=== PATIENT | male | born 1995 | race Caucasian/White ===

== ENCOUNTER 2023-01-23 00:47 | Outpatient (CLI) | payer OTHER, SELFPAY ==
--- NOTE | 2023-01-23 | DI.MRI_ITS ---
Exam(s) MR LUMBAR SPINE WO EXAM: MR LUMBAR SPINE WO CLINICAL HISTORY: SYNOVIAL CYST LUMBAR SPINE, M71.38, BACK PAIN RADICULOPATHY, M54.16. TECHNIQUE: Imaging Protocol: Axial computed tomography images with coronal and sagittal reformatted images were created and reviewed COMPARISON: MR MRI - LUMBAR SPINE WO CONTRAST from 11/26/2016 FINDINGS: Bones: The last intervertebral disc space is designated the L5/S1 level for the numbering purpose of this examination. The vertebral body heights are well maintained. Alignment is satisfactory. No fracture is seen. T12-L1: No disc herniations or bulges are present. L1-2: No disc herniations or bulges are present. L2-3: No disc herniations or bulges are present. L3-4: Minimal the disc bulging and tiny central disc protrusion. L4-5: Mild disc bulging. Previously noted left facet cyst no longer present. L5-S1: Minimal disc bulging. The visualized SI joints and sacrum are will maintained. Soft Tissues: The paraspinal soft tissues are unremarkable. IMPRESSION: Mild degenerative disc changes at L3-4 through L5-S1. No significant central canal stenosis or neura l foraminal narrowing. Previously noted left-sided facet joint cyst is no longer present. RADIATION DOSE DELIVERED: Total DLP DATA REPOSITORY: All CT scans at this facility are submitted to the National Radiology Data Registry (NRDR) Dose Index Registry (DIR) with the [employer] ([employer]). RADIATION OPTIMIZATION: All CT scans at this facility use at least one of these dose optimization te chniques: automated exposure control; mA and/or kV adjustment per patient size (includes targeted exa ms where dose is matched to clinical indication); or iterative reconstruction.
== END 2023-01-23 01:07 ==
LOC: DI 00:48
PROVIDERS: PCP Internal Medicine; Visit Provider Family Medicine
DX: M54.16 Radiculopathy, lumbar region (principal); M71.38 Other bursal cyst, other site; M51.17 Intervertebral disc disorders with radiculopathy, lumbosacral region
CPT/HCPCS: 72148

== ENCOUNTER 2024-02-19 18:24 | Emergency (ER) | payer OTHER, SELFPAY ==
[2024-02-19] VITALS (21 sets, daily range): BP systolic 109–132; BP diastolic 62–88; PULSE 81–109; RESP 20–33; TEMP 37–39.4; O2SAT 92–97
--- NOTE | 2024-02-19 18:30 | DI.RAD_ITS ---
Exam(s) XR PORTABLE CHEST AP EXAM: XR PORTABLE CHEST AP CLINICAL HISTORY: cough, crackles LLL. TECHNIQUE: 2D digital imaging was performed. COMPARISON: No exams were available for comparison FINDINGS: Single AP portable view. Heart size is upper normal. The mediastinum is not widened. Right lung is clear but there is some infiltrate in the left suprahilar region. No pleural effusions . IMPRESSION: Left para-suprahilar infiltrate. No obvious pleural effusions DATA REPOSITORY: RADIATION DOSE DELIVERED:
[2024-02-19 19:11] LABS: Absolute Basophil Count 0.04 10^3/uL (0.0-0.2); Absolute Lymphocyte Count 1.15 10^3/uL (1.2-3.4); Absolute Monocyte Count 0.29 10^3/uL (0.1-0.8); Basophils % 0.6; HCT 44.5 % (40.0-50.0); HGB 15.4 g/dL (13.5-17.5); Immature Grans % 1.6; Lymphocytes % 18.3; MCH 28.9 pg (27.0-33.0); MCHC 34.6 % (32.0-36.0); MCV 84 fL (80-95); MPV 10.2 fL (8.0-11.0); Monocytes % 4.6; Neutrophils % 74.9; Platelet Count 248 10^3/uL (130-400); RBC 5.32 10^6/uL (4.36-5.78); RDW 13.2 % (11.8-14.1); RDW-SD 40.3 fL; WBC 6.28 10^3/uL (4.4-10.8)
[2024-02-19] MEDS: cefTRIAXone 2 GM/50 ML BAG IVPB (19:27)
[2024-02-19] MEDS: Lactated Ringers 1,000 ML 1000 ML IV ×2 (19:29→20:23)
[2024-02-19] MEDS: AZITHROMYCIN 500 MG in Normal Saline 250 ML 250 MG IVPB (19:30)
[2024-02-19] MEDS: Ketorolac 15 MG/ML VIAL IVP (19:30)
[2024-02-19 19:37] LABS: ALT 43 U/L (16-63); AST 42 U/L (15-37); Albumin 3.4 g/dL (3.4-5.0); Alkaline Phosphatase 65 U/L (46-116); Anion Gap 11.8 mmol/L (3-11); BUN 13 mg/dL (7-18); Bilirubin, Total 0.7 mg/dL (0.2-1.0); CO2 25.2 mmol/L (21.0-32.0); CREATININE 1.1 mg/dL (0.70-1.30); Calcium 8.8 mg/dL (8.5-10.1); Chloride 98 mmol/L (98-107); Estimated GFR 93.77 (mL/min/1.73m2); Glucose 103 mg/dL (74-106); Lipase 200 U/L (16-77); Magnesium 2.2 mg/dL (1.8-2.4); Potassium 4.5 mmol/L (3.5-5.1); Sodium 135 mmol/L (136-145); TSH (W/Ref FT4) 1.55 uIU/mL (0.36-3.74); Total Protein 8.4 g/dL (6.4-8.2)
[2024-02-19 19:46] LABS: COVID-19 PCR Negative (Negative); Influenza A PCR Positive (Negative); Influenza B PCR Negative (Negative); RSV PCR Negative (Negative)
[2024-02-19 19:47] LABS: Source Nasopharynx
--- NOTE | 2024-02-19 19:52 | DI.VRAD_ITS ---
PROCEDURE INFORMATION: Exam: XR Chest Exam date and time: 02/19/2024 7:07 PM Age: 28 years old Clinical indication: Cough and other: Crackles lll; Additional info: Cough, crackles lll TECHNIQUE: Imaging protocol: Radiologic exam of the chest. Views: 1 view. COMPARISON: No relevant prior studies available. FINDINGS: Lungs: Moderate left perihilar infiltrate. Lung volumes are relatively low. Lungs are otherwise clear. Pleural spaces: Unremarkable. No pleural effusion. No pneumothorax. Heart/Mediastinum: Unremarkable. No cardiomegaly. Bones/joints: Unremarkable. IMPRESSION: Left perihilar infiltrate Dictated and Authenticated by: Hai Wheatley MD. Ordering:PANKAJ Vallejo MD
[2024-02-19 20:37] LABS: Procalcitonin < 0.1 ng/mL
--- NOTE | 2024-02-19 21:09 | W.ED.GENAD ---
Discharge Plan Disposition Patient Disposition: Home Condition: Good Discharge Details Clinical Impression: Pneumonia, Influenza, Acute pancreatitis, Dehydration Primary Care Provider: Piedad Presley ED Provider: Yoni Erwin Home Meds and New Rx's Prescriptions: New amoxicillin-pot clavulanate 875-125 mg tablet 1 tab PO BID 7 Days Qty: 14 0RF azithromycin 250 mg tablet 250 mg PO DAILY 4 Days Qty: 4 0RF Rx Instructions: start on day 2 of therapy Discharge Instructions Instructions: Influenza (ED), Pneumonia (ED), Pancreatitis (ED) Additional Instructions: At this time you have evidence of bacterial pneumonia. You also have influenza. Please take the antibiotics as directed. Please also take a probiotic to prevent any diarrhea. Please drink plenty of fluids and stay well-hydrated. Stick with a liquid diet for the next few days secondary to your pancreatitis. Please take a probiotic daily to help with the diarrhea. Monitor your symptoms closely. If you notice any worsening of your symptoms, or any new symptoms such as vomiting, diarrhea, fever, chills, shortness of breath, chest pain, numbness, weakness, or fainting , please return immediately to the emergency department for reevaluation. Please follow up with your primary care provider as soon as possible for reassessment and reevaluation. As always, it was a pleasure participating in your medical care today. Referrals: Piedad Presley [Primary Care Provider] - [facility] General Date/Time Provider Initiated Documentation: 02/19/24 18:29. HPI Narrative: 28-year-old male with no significant past medical history presents today for evaluation of cough, nausea, and feeling rundown. Patient states that for 2 to 3 weeks he has had runny nose congestion cough which is gradually been worsening particularly over the last week. He was the first to get sick, the rest of his family eventually came down with similar symptoms and they tested themselves and were positive for influenza. Unfortunately the patient has not improved. His appetite has been notably diminished, he has felt nauseous with no significant vomiting though. He had 1 episode of vomiting a few days back though. Cough is productive with yellow sputum. No lucio hemoptysis. He does admit to mild diarrhea. He denies any foreign travel, international travel, or recent antibiotic use. Related Data Home Medications Medication Instructions Recorded Confirmed amoxicillin 875 mg-potassium 1 tab PO BID 7 days #14 tabs 02/19/24 clavulanate 125 mg tablet azithromycin 250 mg tablet 250 mg PO DAILY 4 days #4 tabs 02/19/24 Previous Rx's Medication Instructions Recorded amoxicillin 875 mg-potassium 1 tab PO BID 7 days #14 tabs 02/19/24 clavulanate 125 mg tablet azithromycin 250 mg tablet 250 mg PO DAILY 4 days #4 tabs 02/19/24 Allergies Allergy/AdvReac Type Severity Reaction Status Date / Time doxycycline Allergy unknown Verified 01/25/24 15:28 sulfamethoxazole Allergy rash Verified 01/25/24 15:28 [From Bactrim] trimethoprim [From Bactrim] Allergy rash Verified 01/25/24 15:28 Sulfa (Sulfonamide AdvReac Unknown unknown Unverified 01/25/24 15:28 Antibiotics) General Stated Complaint: RespSymp MONICA: 3 Review of Systems All systems reviewed & are unremarkable except as noted in HPI and below Exam Narrative Exam Narrative: 1.Const: Well-nourished, Well-developed, appearing stated age 2.Eyes: PERRL, no conjunctival injection, and symmetrical lids. 3.ENT: Atraumatic external nose and ears. Dry MM. Neck: Symmetric, trachea midline, No thyromegaly. 4.CVS: +S1/S2, No murmurs or gallops. Peripheral pulses 2+ and equal in all extremities. Brisk capillary refill in all extremities. 5.RESP: Unlabored respiratory effort. Crackles in the left lower lung field. No wheezes, no rhonchi. 6.GI: Soft, Nontender/Nondistended, No hepatosplenomegaly. No guarding or rebound. 7.MSK: Normocephalic/Atraumatic, Extremities w/o deformity or ttp No cyanosis or clubbing, Normal movement of all extremities 8.Skin: Warm, Dry. No rashes or lesions. 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 Sensation grossly intact, no focal neurologic deficits. 10.Psych: (AAO) x3. Appropriate mood and affect Course Vital Signs Vital signs: Vital Signs Temperature 37.0 C 02/19/24 18:31 Pulse 109 H 02/19/24 18:31 Respiratory Rate 20 02/19/24 18:31 Blood Pressure 132/88 02/19/24 18:31 Pulse Oximetry 94 02/19/24 18:31 Temperature 37.1 C 02/19/24 20:55 Temperature Source Temporal Artery Scan 02/19/24 19:39 Pulse 87 02/19/24 20:45 Pulse 87 02/19/24 20:50 Respiratory Rate 22 02/19/24 20:50 Respiratory Effort Short of Breath, Labored 02/19/24 19:47 Respiratory Depth Shallow 02/19/24 19:47 Blood Pressure 115/76 02/19/24 20:45 Blood Pressure Mean 89 02/19/24 20:45 Blood Pressure Position Supine 02/19/24 19:39 Pulse Oximetry 94 02/19/24 20:50 Oxygen Delivery Method Room Air 02/19/24 19:39 Oxygen Flow Rate 0 02/19/24 18:31 Pain Level 0 02/19/24 19:39 Lab/Test Results Lab/Test Results: 02/19/24 15:24 Blood Blood Culture - Pending 02/19/24 15:20 Blood Blood Culture - Pending Laboratory Tests Range/Units 02/19/24 19:00 WBC (4.4-10.8) 10^3/uL 6.28 RBC (4.36-5.78) 10^6/uL 5.32 Hgb (13.5-17.5) g/dL 15.4 Hct (40.0-50.0) % 44.5 MCV (80-95) fL 84 MCH (27.0-33.0) pg 28.9 MCHC (32.0-36.0) % 34.6 RDW (11.8-14.1) % 13.2 Plt Count (130-400) 10^3/uL 248 MPV (8.0-11.0) fL 10.2 Immature Gran % 1.6 Neutrophils % 74.9 Lymphocytes % 18.3 Monocytes % 4.6 Eosinophils % 0.0 Basophils % 0.6 Nucleated RBC % (0.0-0.3) % 0.0 Absolute Neutrophils (1.2-6.7) 10^3/uL 4.70 Absolute Lymphocytes (1.2-3.4) 10^3/uL 1.15 L Absolute Monocytes (0.1-0.8) 10^3/uL 0.29 Absolute Eosinophils (0.0-0.7) 10^3/uL 0.00 Absolute Basophils (0.0-0.2) 10^3/uL 0.04 VBG Lactate (0.6-1.4) mmol/L 1.0 Sodium (136-145) mmol/L 135 L Potassium (3.5-5.1) mmol/L 4.5 Chloride (98-107) mmol/L 98 Carbon Dioxide (21.0-32.0) mmol/L 25.2 Anion Gap (3-11) mmol/L 11.8 H BUN (7-18) mg/dL 13 Creatinine (0.70-1.30) mg/dL 1.1 Est GFR (CKD-EPI 2020) (mL/min/1.73m2) 93.77 Glucose (74-106) mg/dL 103 Calcium (8.5-10.1) mg/dL 8.8 Magnesium (1.8-2.4) mg/dL 2.2 Total Bilirubin (0.2-1.0) mg/dL 0.7 AST (15-37) U/L 42 H ALT (16-63) U/L 43 Alkaline Phosphatase (46-116) U/L 65 Total Protein (6.4-8.2) g/dL 8.4 H Albumin (3.4-5.0) g/dL 3.4 Lipase (16-77) U/L 200 H Procalcitonin ng/mL < 0.1 TSH (0.36-3.74) uIU/mL 1.55 COVID-19 Source Nasopharynx SARS-CoV-2 (PCR) (Negative) Negative Influenza Type A (PCR) (Negative) Positive A Influenza Type B (PCR) (Negative) Negative RSV (PCR) (Negative) Negative Medical Decision Making 28-year-old male with no significant past medical history presents today for evaluation of cough, nausea, and feeling rundown. Patient states that for 2 to 3 weeks he has had runny nose congestion cough which is gradually been worsening particularly over the last week. He was the first to get sick, the rest of his family eventually came down with similar symptoms and they tested themselves and were positive for influenza. Unfortunately the patient has not improved. His appetite has been notably diminished, he has felt nauseous with no significant vomiting though. He had 1 episode of vomiting a few days back though. Cough is productive with yellow sputum. No lucio hemoptysis. He does admit to mild diarrhea. He denies any foreign travel, international travel, or recent antibiotic use. Exam demonstrates well-appearing male, however he does appear quite fatigued. Vital signs demonstrate tachycardia with no hypoxemia. He is afebrile. Lung sounds demonstrate crackles in the left lower lungs, concerning for pneumonia. I suspect he is dehydrated, his diarrhea may be viral in origin, will evaluate for concerning etiologies, rehydrate, monitor closely and reassess. 10 PM Laboratory workup shows no white count or bandemia, mild lymphopenia. Lactate normal, electrolytes normal, renal function normal. Lipase is elevated at 200 which may represent his diminished appetite and nausea. Thyroid function normal. Chest x-ray shows left-sided infiltrate influenza is positive. Patient developed fever while here, he was given Toradol, fever eventually broke. He was given 2 L of lactated Ringer's, because of the pneumonia and the longevity of his symptoms I am concerned that it is bacterial pneumonia at this stage. Patient was given ceftriaxone and azithromycin for coverage. I do not feel that Ha would be a good candidate secondary to his allergy and mild pancreatitis. After fluids and antibiotics patient felt much better. We did get him up and ambulate him around the department his oxygen saturations remained above 93%. Patient feels stable to go home. Patient is low risk for pneumonia score/pneumonia severity score. Will give prescription for Augmentin and azithromycin for both atypical and general coverage. 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 I do not see an indication for Tamiflu as his flu symptomatology has been going on for quite some time and he is out of the window for treatment effectiveness. Recommend probiotic for home. Additionally recommended bland diet for the next few days secondary to his pancreatitis. Suspect viral etiology for the cause of the pancreatitis. Discussed red flags for which to return. I have extensively reviewed the treatment plan and discharge instructions with the patient and their family. I have addressed all patient concerns at this time. The patient and family was made aware of what symptoms to monitor for that would warrant a return to the emergency department. Discussed the plan with the patient and family, they demonstrate verbal understanding and agreement with our assessment and plan at this time. The documentation in this chart was dictated using [employer] dictation software. Please excuse any dictation errors. FINDINGS: Lungs: Moderate left perihilar infiltrate. Lung volumes are relatively low. Lungs are otherwise clear. Pleural spaces: Unremarkable. No pleural effusion. No pneumothorax. Heart/Mediastinum: Unremarkable. No cardiomegaly. Bones/joints: Unremarkable. IMPRESSION: Left perihilar infiltrate Thank you for allowing us to participate in the care of your patient. Dictated and Authenticated by: Hai Wheatley MD 02/19/2024 7:52 PM Eastern Time ([place] & [place]) Quality:SDOH Health Related Social Needs: No Data to Display PFSH All Active Problems (Updated 02/19/24 @ 22:11 by Yoni Erwin DO) Dehydration (Acute) Acute pancreatitis (Acute) Pneumonia (Acute) Influenza (Acute) Cyst of bursa (Acute) Lumbosacral radiculopathy (Acute) Benign paroxysmal positional vertigo (Acute) Obesity (Chronic) Social History Smoking/Tobacco Use Status: Never Smoking risk assessment performed?: Yes Alcohol Intake: current Alcohol Intake frequency: holidays/special occasions only Drug use: Never Housing: apartment Current gender identity: male
== END 2024-02-19 21:21 | disposition home or self-care (01) ==
PROVIDERS: Emergency Provider Student in an Organized Health Care Education/Training Program; PCP Nurse Practitioner Family
DX: J10.00 Influenza due to other identified influenza virus with unspecified type of pneumonia (principal); K85.90 Acute pancreatitis without necrosis or infection, unspecified; E86.0 Dehydration
CPT/HCPCS: 80053; 83690; 84145; 87040; 87637; 96374; 96375; 99284; 71045; 83605; 83735; 84443; 85025; 99283; J0456; J0696; J1885

== ENCOUNTER 2024-04-11 09:20 | Outpatient (CLI) | payer OTHER, SELFPAY ==
[2024-04-11 15:36] LABS: Abs Immature Grans 0.03 10^3/uL (0.0-0.06); Absolute Basophil Count 0.06 10^3/uL (0.0-0.2); Absolute Eosinophil Count 0.22 10^3/uL (0.0-0.7); Absolute Lymphocyte Count 2.59 10^3/uL (1.2-3.4); Absolute Monocyte Count 0.85 10^3/uL (0.1-0.8); Absolute Neutrophil Count 5.69 10^3/uL (1.2-6.7); Basophils % 0.6 %; Eosinophils % 2.3 %; HCT 46.4 % (40.0-50.0); HGB 15.8 g/dL (13.5-17.5); Immature Grans % 0.3 %; Lymphocytes % 27.4 %; MCH 29.6 pg (27.0-33.0); MCHC 34.1 % (32.0-36.0); MCV 87 fL (80-95); MPV 10.3 fL (8.0-11.0); Neutrophils % 60.4 %; Platelet Count 159 10^3/uL (130-400); RBC 5.33 10^6/uL (4.36-5.78); RDW 13.5 % (11.8-14.1); RDW-SD 43.2 fL; WBC 9.44 10^3/uL (4.4-10.8)
[2024-04-11 16:17] LABS: ALT 28 U/L (16-63); AST 20 U/L (15-37); Albumin 4.7 g/dL (3.4-5.0); Alkaline Phosphatase 90 U/L (46-116); Anion Gap 11.7 mmol/L (3-11); BUN 12 mg/dL (7-18); Bilirubin, Total 0.7 mg/dL (0.2-1.0); CO2 26.3 mmol/L (21.0-32.0); CREATININE 0.9 mg/dL (0.70-1.30); Calcium 9.2 mg/dL (8.5-10.1); Chloride 102 mmol/L (98-107); Estimated GFR 118.57 (mL/min/1.73m2); Glucose 86 mg/dL (74-106); Lipase 44 U/L (16-77); Potassium 4.2 mmol/L (3.5-5.1); Sodium 140 mmol/L (136-145); Total Protein 7.9 g/dL (6.4-8.2)
== END 2024-04-11 09:21 | disposition home or self-care (01) ==
LOC: LBO 04-12 09:20
PROVIDERS: PCP Nurse Practitioner Family; Visit Provider Nurse Practitioner Family
DX: R19.7 Diarrhea, unspecified (principal)
CPT/HCPCS: 36415; 80053; 83690; 85025

== ENCOUNTER → 2024-04-11 09:26 | Outpatient (CLI) | payer OTHER, SELFPAY ==
--- NOTE | 2024-04-11 | DI.RAD_ITS ---
Exam(s) XR CHEST 2V PA LATERAL EXAM: XR CHEST 2V PA LATERAL CLINICAL HISTORY: DYSPNEA AT REST, R06.00 TECHNIQUE: 2D digital imaging was performed. Two views. COMPARISON: CR,XR XR PORTABLE CHEST AP from 02/19/2024 FINDINGS: HEART: Normal size. Aorta: Not dilated. PULMONARY VASCULATURE: Normal. LUNGS: Clear. PLEURAL SPACE: No pleural effusion or pneumothorax. BONE:Unremarkable for age. Soft tissues: Unremarkable. IMPRESSION: No acute abnormality. DATA REPOSITORY: RADIATION DOSE DELIVERED:
== END ==
PROVIDERS: PCP Nurse Practitioner Family; Visit Provider Nurse Practitioner Family
DX: R06.00 Dyspnea, unspecified (principal)
CPT/HCPCS: 71046

== ENCOUNTER 2024-04-18 16:22 | Outpatient (REF) | payer OTHER, SELFPAY ==
[2024-04-18 22:23] LABS: Vitamin D 25 Total 18.1 ng/mL (30-100)
[2024-04-20 07:26] LABS: IgE 8 IU/mL (<158)
[2024-04-20 09:02] LABS: Alpha 1 Antitrypsin,Serum 184 mg/dL (90-200)
[2024-04-22 18:37] LABS: Aspergillus Fumigatus IgE <0.10 kU/L (<0.70)
== END 2024-04-18 16:23 | disposition home or self-care (01) ==
LOC: NCHCN 16:22
PROVIDERS: PCP Nurse Practitioner Family; Visit Provider Nurse Practitioner Family
DX: J18.9 Pneumonia, unspecified organism (principal); E55.9 Vitamin D deficiency, unspecified; R09.3 Abnormal sputum
CPT/HCPCS: 82306; 82103; 82785; 86003; 87070; 87205

== ENCOUNTER 2024-04-29 03:12 | Outpatient (CLI) | payer OTHER, SELFPAY ==
[2024-04-29] MEDS: Levalbuterol HFA 15 GM INH 4 PUFF IH (09:14)
[2024-04-29] MEDS: Inhaler, Assist Device 1 EACH MC (09:14)
--- NOTE | 2024-05-03 14:36 | W.PFT ---
Date of service: 04/29/24 Time of Service: 08:01 Pulmonary Function Test Result Requesting Provider Neeru Silver Indications: TALBERT Interpretation Spirometry: normal Lung Volumes: normal Diffusion Capacity: normal Impression Normal spirometry, normal lung volumes w/ very mild air trapping and normal diffusion. There is a trend towards obstruction based on lower FEF 25-75%. Flow volume curve suggests obstruction. Clinical Correlation therefore is recommended.
== END 2024-04-29 03:13 | disposition home or self-care (01) ==
LOC: RT 03:13
PROVIDERS: PCP Nurse Practitioner Family; Visit Provider Nurse Practitioner Family
DX: R06.09 Other forms of dyspnea (principal)
CPT/HCPCS: 00123; 94060; 94726; 94729

== ENCOUNTER 2024-10-07 01:25 | Outpatient (CLI) | payer OTHER, SELFPAY ==
[2024-10-07] MEDS: Inhaler, Assist Device 1 EACH MC (11:24)
[2024-10-07] MEDS: Methacholine 100 MG VIAL IH (11:24)
[2024-10-07] MEDS: Albuterol HFA 18 GM 200 PUFF INH IH (11:25)
--- NOTE | 2024-10-08 12:25 | W.PFT ---
Date of service: 10/07/24 Time of Service: 09:54 Pulmonary Function Test Result Indications: Asthma Interpretation Spirometry: There was a 40% decrease in FEV1 with administration of 0.5mg/mL methacholine. Impression Positive methacholine challenge Clinical Correlation therefore is recommended.
== END 2024-10-07 01:26 | disposition home or self-care (01) ==
LOC: RT 01:26
PROVIDERS: PCP Nurse Practitioner Family; Visit Provider Student in an Organized Health Care Education/Training Program
DX: J45.909 Unspecified asthma, uncomplicated (principal)
CPT/HCPCS: 94060; 94070; J7674

== ENCOUNTER 2024-10-16 16:58 | Emergency (ER) | payer OTHER, SELFPAY ==
[2024-10-16] VITALS (28 sets, daily range): BP systolic 120–144; BP diastolic 64–85; PULSE 80–89; RESP 16; TEMP 37.3; O2SAT 91–99
--- NOTE | 2024-10-16 16:45 | RT.EKG_ITS ---
APPROVED REPORT Exam: Resting ECG Reason for Exam: shortness of breathe Patient Location: E HR:87 bpm ECG Measurements Heart Rate [address] 175 P 21 QRSd 95 QRS 11 QT 333 T 11 QTc 401 Conclusion Sinus rhythm...normal P axis, V-rate 60- 99
--- NOTE | 2024-10-16 17:17 | W.ED.GENAD ---
Discharge Plan Disposition Patient Disposition: Home Condition: Stable Discharge Details Clinical Impression: Community acquired pneumonia Primary Care Provider: Piedad Presley ED Provider: Estefani Espinoza Home Meds and New Rx's Prescriptions: New amoxicillin-pot clavulanate 875-125 mg Tablet 1 tab PO BID 5 Days Qty: 8 0RF Continued multivitamin Tablet 1 tab PO DAILY lactobacillus combination no.8 [Adult Probiotic] See Rx Instructions .ROUTE DIRECTED Rx Instructions: as directed; Dulera 100-5 mcg/actuation HFA aerosol inhaler 2 puff inhalation BID Qty: 13 12RF Discharge Instructions Instructions: Community-Acquired Pneumonia, Adult (DC) Additional Instructions: Please call [facility] first thing in the morning to schedule a follow-up appointment for reassessment. Please take the full course of Augmentin as prescribed for the full course. I encourage you to continue using your inhalers, albuterol as needed and your Dulera as prescribed. You may use Tylenol and ibuprofen as needed for fever/chills. You should start feeling better in the next 48 hours Return to emergency care if you develop new chest pain, difficulty breathing, high fevers after 48 hours of treatment, inability to hold down your medication, or if you are very worried and need to be rechecked again immediately Referrals: Piedad Presley [Primary Care Provider] - [facility] General Date/Time Provider Initiated Documentation: 10/16/24 17:00. [facility] Narrative: Robinson is a 29 year old male who presents to the emergency department today for evaluation of fever up to 104, headache, cough, sternal chest discomfort, increased shortness of breath from baseline, abdominal discomfort, nausea, and mild diarrhea x 3 days. He reports that yesterday he started having lower back pain that is worse with coughing and moving located on the left side of his lower back but does not feel like his usual lumbar radiculopathy. He also reports epigastric discomfort when eating anything fatty. He denies congestion, ear pain, sore throat, palpitations, audible wheezes, vomiting, hematuria/dysuria, blood in stool. He has not used a rescue inhaler at home. Takes Dulera daily. Family history significant for cardiac disease; no history of connective tissue disorders.. Past medical history is significant for dyspnea with abnormal PFTs and history of pneumonia and pancreatitis requiring hospitalization. Denies history of surgery to chest or abdomen. No known recent ill contacts. No history of tobacco or alcohol use on a regular basis. Physical exam reassuring. Robinson is alert and oriented, no acute distress. Occasional dry cough. Coarse lung sounds in all lung gutiérrez, no audible wheezes. Normal heart sounds. Abdomen is soft, nondistended, nontender to palpation. No CVA tenderness. No C-spine/T-spine/L-spine tenderness/step-off/deformity. Tenderness noted with palpation of paraspinal muscles along the left lower back with a small muscle knot noted. Normal gait, moving all extremities equally. No pedal edema noted. D/dx includes but is not limited to: Pneumonia, asthma exacerbation, viral illness such as COVID-19 or flu, dehydration, electrolyte imbalance, pancreatitis, cholangitis/cholecystitis, nephrolithiasis; low suspicion for ACS, however as patient has had discomfort of chest we will obtain troponins. No vital sign abnormalities noted; patient does not meet SIRS criteria. I independently interpreted the following tests: EKG reassuring, normal sinus rhythm rate 87, normal intervals. No changes consistent with acute ischemia. Flu and COVID-negative. CBC, CMP, lipase, and troponins (17, 16) reassuring. COVID/flu negative. While in the emergency department, Robinson received a nebulizer treatment, as well as famotidine and Zofran for abdominal discomfort/nausea. He did have improvement in lung sounds with neb treatment, but desatted from mid90s to 89% with ambulation. Robinson did have dyspnea with ambulation, denies dizziness or CP. As he had desaturation, CT obtained to rule out PE. CTA remarkable for left lower lobe pneumonia. Will treat with Augmentin for community-acquired pneumonia; pt confirms no abx within last 90 days but does have h/o lung disease so expanded coverage is appropriate. Outpatient management is appropriate, patient has 0 points on curb 65 score and is able to seek care reliably if any change in condition/concerns. Recommend close follow-up with PCP for reassessment. As Robinson did have good improvement of symptoms with albuterol, he was sent home with an albuterol inhaler with spacer for use for wheezing as needed. Reviewed discharge instructions with patient, including symptomatic management and red flags indicating need for return to emergency care Related Data Home Medications ?Medication ?Instructions ?Recorded ?Confirmed lactobacillus combination no.8 See Rx Instructions .Route 06/23/24 10/16/24 [Adult Probiotic] DIRECTED mometasone-formoterol HFA 100 2 puff inhalation BID #13 grams 06/23/24 10/16/24 mcg-5 mcg/actuation aerosol inhaler (Dulera) multivitamin 1 tab PO DAILY 06/23/24 10/16/24 amoxicillin 875 mg-potassium 1 tab PO BID 5 days #8 tabs 10/16/24 clavulanate 125 mg tablet Previous Rx's ?Medication ?Instructions ?Recorded mometasone-formoterol HFA 100 2 puff inhalation BID #13 grams 06/23/24 mcg-5 mcg/actuation aerosol inhaler (Dulera) amoxicillin 875 mg-potassium 1 tab PO BID 5 days #8 tabs 10/16/24 clavulanate 125 mg tablet Allergies Allergy/AdvReac Type Severity Reaction Status Date / Time doxycycline Allergy unknown Verified 10/16/24 17:06 sulfamethoxazole (From Allergy rash Verified 10/16/24 17:06 Bactrim) trimethoprim (From Bactrim) Allergy rash Verified 10/16/24 17:06 Sulfa (Sulfonamide AdvReac Unknown unknown Unverified 10/16/24 17:06 Antibiotics) General Stated Complaint: Abd Prob MONICA: 3 Review of Systems Narrative: See HPI Exam Const General: cooperative, comfortable, no acute distress, well developed and diaphoretic (Slightly damp skin) Nutritional Appearance: average body habitus Orientation: alert and oriented x3 HENMT Ears: hearing grossly normal bilaterally Face and sinus: normal facial exam Mouth: oral mucosae normal Throat: posterior oropharynx normal Neck Neck: normal visual inspection, no lymphadenopathy and no meningeal signs Chest Chest: normal inspection of the chest and normal palpation of entire chest wall Resp Effort & Inspection: normal respiratory effort and able to speak in complete sentences Auscultation: rhonchi (Coarse lung sounds in all lung gutiérrez) Cardio Jugular venous pressure: no JVD Rate: regular rate Rhythm: regular rhythm GI Inspection: normal to inspection and non-distended Palpation: soft, not firm, no guarding and nontender Auscultation: normal bowel sounds General: No CVA tenderness Back/Spine/Pelvis Back: no CVA tenderness Cervical Spine: normal cervical lordosis Thoracic/Lumbar Spine: thoracic and lumbar spine normal to inspection and paraspinal tenderness (Left lower back) Skin General skin exam: no rashes or lesions noted Trauma: no lacerations or abrasions Neuro General: patient alert, patient oriented x3, gait normal, tone normal and moves all extremities Extrem General: no pedal edema Course Vital Signs Vital signs: Vital Signs Temperature 37.3 C 10/16/24 17:00 Pulse 88 10/16/24 17:00 Respiratory Rate 16 10/16/24 17:00 Blood Pressure 141/85 H 10/16/24 17:00 Pulse Oximetry 96 10/16/24 17:00 Temperature 37.3 C 10/16/24 17:00 Temperature Source Oral 10/16/24 17:00 Pulse 88 10/16/24 17:00 Respiratory Rate 16 10/16/24 17:00 Blood Pressure 141/85 H 10/16/24 17:00 Blood Pressure Position Sitting 10/16/24 17:00 Pulse Oximetry 96 10/16/24 17:00 Oxygen Delivery Method Room Air 10/16/24 17:00 Oxygen Flow Rate 0 10/16/24 17:00 Medical Decision Making Quality:SDOH Health Related Social Needs: No Data to Display PFSH All Active Problems (Updated 10/16/24 @ 20:53 by Estefani Swan) Community acquired pneumonia (Acute) Dyspnea (Acute) at rest Cyst of bursa (Acute) Lumbosacral radiculopathy (Acute) Benign paroxysmal positional vertigo (Acute) Obesity (Chronic) Family History (Updated 06/23/24 @ 09:49 by Laurel Chávez) Father Environmental allergies Heart disease stents Sister Environmental allergies Migraine Mother Multiple sclerosis Social History (Updated 06/23/24 @ 09:49 by Laurel Chávez) Smoking/Tobacco Use Status: Never Smoking risk assessment performed?: Yes Alcohol Intake: current Alcohol Intake frequency: holidays/special occasions only Drug use: Occasionally Substance use type: marijuana Housing: apartment 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
[2024-10-16] MEDS: Famotidine 20 MG/2 ML VIAL IVP (17:32)
[2024-10-16] MEDS: Albuterol/Ipratropium 3 ML UPD VIAL UPD (17:32)
[2024-10-16] MEDS: Ondansetron 4 MG/2 ML VIAL IVP (17:32)
[2024-10-16 17:33] LABS: Abs Immature Grans 0.01 10^3/uL (0.0-0.06); Absolute Basophil Count 0.03 10^3/uL (0.0-0.2); Absolute Eosinophil Count 0.25 10^3/uL (0.0-0.7); Absolute Monocyte Count 0.88 10^3/uL (0.1-0.8); Basophils % 0.4 %; Eosinophils % 3.3 %; HCT 42.1 % (40.0-50.0); HGB 14.7 g/dL (13.5-17.5); Immature Grans % 0.1 %; Lymphocytes % 25.1 %; MCH 29.9 pg (27.0-33.0); MCHC 34.9 % (32.0-36.0); MCV 86 fL (80-95); MPV 10.5 fL (8.0-11.0); Monocytes % 11.6 %; Neutrophils % 59.5 %; Platelet Count 148 10^3/uL (130-400); RBC 4.92 10^6/uL (4.36-5.78); RDW 12.8 % (11.8-14.1); RDW-SD 39.8 fL; WBC 7.57 10^3/uL (4.4-10.8)
--- NOTE | 2024-10-16 17:53 | DI.RAD_ITS ---
Exam(s) XR CHEST 2V PA LATERAL EXAM: XR CHEST 2V PA LATERAL CLINICAL HISTORY: sob, fever TECHNIQUE: 2D digital imaging was performed. Two views. COMPARISON: CT CT CHEST WO from 04/15/2024 FINDINGS: HEART: Normal size. Aorta: Not dilated. PULMONARY VASCULATURE: Normal. MEDIASTINUM: Unremarkable. LUNGS: Increased density at left lower lobe, at the diaphragm consistent with pneumonia. Right lung is clear. PLEURAL SPACE: No pleural effusion or pneumothorax. BONE:Unremarkable for age. SOFT TISSUES: Unremarkable. IMPRESSION: Left lower lobe pneumonia. DATA REPOSITORY: RADIATION DOSE DELIVERED:
[2024-10-16] MEDS: Lidocaine 5% Patch 1 PATCH TP (17:59)
[2024-10-16 18:19] LABS: ALT 26 U/L (16-63); AST 22 U/L (15-37); Albumin 3.7 g/dL (3.4-5.0); Alkaline Phosphatase 90 U/L (46-116); Anion Gap 10.6 mmol/L (3-11); BUN 16 mg/dL (7-18); Bilirubin, Total 0.52 mg/dL (0.2-1.0); CO2 25.4 mmol/L (21.0-32.0); CREATININE 1.1 mg/dL (0.70-1.30); Chloride 105 mmol/L (98-107); Estimated GFR 93.19 (mL/min/1.73m2); Glucose 104 mg/dL (74-106); Lipase 56 U/L (<78); Potassium 3.9 mmol/L (3.5-5.1); Sodium 141 mmol/L (136-145); Total Protein 7.7 g/dL (6.4-8.2); Troponin I 17 ng/L (<or=76)
[2024-10-16] MEDS: Albuterol HFA 8 GM 60 PUFF INH IH (19:00)
--- NOTE | 2024-10-16 19:00 | DI.CT_ITS ---
Exam(s) CT CHEST PE CTA EXAM: CT CHEST PE CTA CLINICAL HISTORY: desat with ambulation. TECHNIQUE: Imaging Protocol: Axial CT angiography was performed with multi-slice acquisition and mu lti-planar reconstructions as well as axial, coronal and sagittal MIP reconstructions. Computer aided detection (CAD) was utilized. CONTRAST MATERIAL: Intravenous: Omnipaque 350 Contrast volume:100 ml COMPARISON: CT CT CHEST WO from 04/15/2024 CR,XR XR CHEST 2V PA LATERAL from 10/16/2024 FINDINGS: Pulmonary Arteries: No evidence of filling defect to suggest pulmonary emboli. Mediastinum and Elena: No dominant adenopathy or fluid collection. Pulmonary parenchyma: There is a dense infiltrate noted in the left lower lobe, just above the diaphr agm. The right lung is clear. Pleura: No effusion or pneumothorax. Heart: The heart is not dilated. No coronary artery calcifications are seen. Aorta: Thoracic aorta non-dilated. No dissection. Upper abdomen: No acute findings. Bones: Unremarkable for age. Tubes, Catheters, and Lines: None Soft tissues: Unremarkable. IMPRESSION: No evidence of pulmonary embolism. Left lower lobe pneumonia. RADIATION DOSE DELIVERED: 130.09mGy.cm Total DLP DATA REPOSITORY: All CT scans at this facility are submitted to the National Radiology Data Registry (NRDR) Dose Index Registry (DIR) with the [employer] (ACR). RADIATION OPTIMIZATION: All CT scans at this facility use at least one of these dose optimization te chniques: automated exposure control; mA and/or kV adjustment per patient size (includes targeted exa ms where dose is matched to clinical indication); or iterative reconstruction.
[2024-10-16 19:01] LABS: Troponin I 16 ng/L (<or=76)
[2024-10-16] MEDS: Omnipaque 350 MG/ML 100 ML BTL IJ (19:21)
[2024-10-16] MEDS: Normal Saline - Diluent 50 ML VIAL IJ (19:22)
[2024-10-16] MEDS: Normal Saline Flush 10 ML SYR IVP (19:31)
--- NOTE | 2024-10-16 20:21 | DI.VRAD_ITS ---
PROCEDURE INFORMATION: Exam: XR Chest Exam date and time: 10/16/2024 5:51 PM Age: 29 years old Clinical indication: Fever and shortness of breath TECHNIQUE: Imaging protocol: Radiologic exam of the chest. Views: 2 views. COMPARISON: CT CHEST WO 04/15/2024 7:21 AM FINDINGS: Lungs: There is some airspace opacity at the left lung base laterally. There is some retrocardiac opacity noted as well. The right lung appears clear. Pleural spaces: Unremarkable. No pleural effusion. No pneumothorax. Heart/Mediastinum: Unremarkable. No cardiomegaly. Bones/joints: Unremarkable. IMPRESSION: Left lower lobe pneumonia. Dictated and Authenticated by: Noelle Jack MD. Ordering:MAULIK Jara MD
--- NOTE | 2024-10-16 20:28 | DI.VRAD_ITS ---
PROCEDURE INFORMATION: Exam: CTA Chest With Contrast Exam date and time: 10/16/2024 7:20 PM Age: 29 years old Clinical indication: Other: Destat with ambulation TECHNIQUE: Imaging protocol: Computed tomographic angiography of the chest with contrast. Exam focused on the arteries. 3D rendering (Not supervised by radiologist): MIP and/or 3D reconstructed images were created by the technologist. Radiation optimization: All CT scans at this facility use at least one of these dose optimization techniques: automated exposure control; mA and/or kV adjustment per patient size (includes targeted exams where dose is matched to clinical indication); or iterative reconstruction. Contrast material: OMNIPAQUE 350; Contrast volume: 100 ml; Contrast route: INTRAVENOUS (IV); COMPARISON: CT CHEST WO 04/15/2024 7:21 AM FINDINGS: Pulmonary arteries: Normal. No pulmonary emboli. Aorta: Unremarkable. No aortic aneurysm. No aortic dissection. Lungs: There is dense left lower lobe pneumonia with some more fluffy airspace opacification in the superior aspect of the lower lobe. Pleural spaces: Unremarkable. No pneumothorax. No pleural effusion. Heart: Unremarkable. No cardiomegaly. No pericardial effusion. Lymph nodes: Unremarkable. No enlarged lymph nodes. Bones/joints: Unremarkable. No acute fracture. Soft tissues: Unremarkable. IMPRESSION: 1. No evidence for pulmonary embolus. 2. Left lower lobe pneumonia. Dictated and Authenticated by: Noelle Jack MD. Ordering:MAULIK Jara MD
[2024-10-16] MEDS: Amoxicillin 875/Clav. 125 TAB PO (20:55)
== END 2024-10-16 20:59 | disposition home or self-care (01) ==
PROVIDERS: Emergency Provider Nurse Practitioner Family; PCP Nurse Practitioner Family
DX: J18.9 Pneumonia, unspecified organism (principal); R06.02 Shortness of breath; R50.9 Fever, unspecified
CPT/HCPCS: 71275; 80053; 83690; 87426; 93005; 96374; 96375; 99285; 71046; 84484; 85025; 93010; J2405; J3490; J7620

== ENCOUNTER 2025-10-17 15:57 | Observation (INO) | payer OTHER, SELFPAY ==
--- NOTE | 2025-10-16 19:20 | ANES.PREOP_ITS ---
General Info Date of Service Date Performed: 10/17/25 Height: 5 ft 10 in Weight: 103.873 kg Body Mass Index (BMI): 32.8 Surgical Procedure: Operation Date: 10/17/25 11:55 Proposed Procedure Side Surgeon p Herniorrhaphy Inguinal w/Mesh Left Mo Hopson MD Meds Allergies and Home Medications Allergies Allergy/AdvReac Type Severity Reaction Status Date / Time doxycycline Allergy unknown Verified 10/17/25 11:06 sulfamethoxazole (From Allergy rash Verified 10/17/25 11:06 Bactrim) trimethoprim (From Bactrim) Allergy rash Verified 10/17/25 11:06 Sulfa (Sulfonamide AdvReac Unknown unknown Verified 10/17/25 11:06 Antibiotics) Home Medication ?Medication ?Instructions ?Recorded lactobacillus combination no.8 See Rx Instructions .[facility] 06/23/24 [Adult Probiotic] DIRECTED multivitamin 1 tab PO DAILY 06/23/24 albuterol sulfate 2.5 mg/3 mL 2.5 mg (3 mL) inhalation QID PRN 10/27/24 (0.083 %) solution for nebulization shortness of breat h or wheezing #180 mL budesonide 160 mcg-glycopyr 9 2 inh inhalation BID #10 .7 grams 10/27/24 mcg-formot 4.8 mcg/actuation HFA inhaler (Breztri Aerosphere) dupilumab 300 mg/2 mL subcutaneous 300 mg (2 mL) subcu t Q2W #4 mL 06/15/25 syringe ([employer]) Current Visit Medications: Current Medications Generic Name Dose Route Start Last Admin Trade Name Freq PRN Reason Stop Dose Admin Acetaminophen 1,000 mg 10/17/25 06:00 Acetaminophen 500 Mg Tab PO 10/17/25 23:59 PREOP PANTERA Celecoxib 200 mg 10/17/25 06:00 Celecoxib 200 Mg Cap PO 10/17/25 23:59 PREOP PANTERA Gabapentin 600 mg 10/17/25 06:00 Gabapentin 300 Mg Cap PO 10/17/25 23:59 PREOP PANTERA Ringer's Solution 1,000 mls @ 80 mls/hr 10/17/25 06:00 IV 10/17/25 23:59 INFUSION PANTERA Cefazolin Sodium/Dextrose 2 gm in 50 mls @ 100 mls/hr 10/17/25 06:00 Ancef Duplex IVPB 10/17/25 23:59 PREOP PANTERA Sodium Chloride 0 ml 10/17/25 06:00 Normal Saline Flush 10 Ml Syr IV 10/17/25 23:59 PRN PRN Sodium Chloride 0 ml 10/17/25 06:00 Normal Saline 10 Ml Vial IJ 10/17/25 23:59 DIRECTED PRN Sterile Water 0 ml 10/17/25 06:00 Water,Injection,Sterile 10 Ml Vial IJ 10/17/25 23:59 DIRECTED PRN PFSH Active Problems Active Problems: Problem Status Onset Code Left inguinal hernia Acute K40.90 Scrotal pain Acute N50.82 Community acquired pneumonia Acute J18.9 Dyspnea Acute R06.00 Cyst of bursa Acute M71.30 Lumbosacral radiculopathy Acute M54.17 Benign paroxysmal positional vertigo Acute H81.10 Obesity Chronic E66.9 Medical History Medical History (Updated 10/16/25 @ 10:08 by Melisa Luis RN) Finger amputation, traumatic R Tobacco Smoking/Tobacco Use Status: Never Alcohol Alcohol Intake: current Alcohol intake frequency: holidays/special occasions only Substance Use Substance use: Daily Substance use type: marijuana Details: edible and flower Vital Signs and Lab Results Vital Signs Most Recent Vital Signs in EMR: Temp Pulse Resp BP Pulse Ox 36.2 C L 73 16 118/82 97 10/17/25 10:45 10/17/25 10:45 10/17/25 10:45 10/17/25 10:45 10/17/25 10:45 Anesthesia Assessment and Plan Anesthesia History Personal History: No History of Anesthesia Complications and Unknown Anesthesia History Family History: No Family History of Anesthesia Complications Exercise Tolerance Exercise Tolerance: Metabolic Equivalents>4 Cardiac & Pulmonary Exam Cardiac Exam: Normal S1/S2 Heart Sounds Pulmonary Exam: Clear Bilateral Breath Sounds Implantable Cardiac Device Does patient have a Pacemaker or an ICD?: No Airway Exam Known Difficult Airway: No Mallampati Class: 2 Mouth Opening: Narrow (< 3cm) Thyromental Distance: Greater than 3 cm Neck Range of Motion: Full ROM Neck Circumference: Normal Teeth Condition: Normal Dentition ASA Classification ASA Score: ASA 2 Emergency Case?: No NPO Status NPO Status: NPO Clears >2 hours, Solids >8 hours Anesthesia Plan Resuscitation Status: Full Code Anesthesia Technique: General Anesthesia Airway Planned: LMA Monitors Used: Standard Monitors Preoperative Comments:: 30 yo for hernia repair. Very anxious for IV. Sig PMHx: Asthma (Breztri, albuterol, dupixant), LBP, vertigo (no issues in a while). ECG: sinus.
--- NOTE | 2025-10-16 19:52 | W.PM.DSUDISC ---
Date of service: 10/17/25 Discharge Plan Disposition Patient Disposition: Home Condition: Good Discharge Details Reason For Visit: left inguinal hernia repair Attending Provider: Mo Hopson Primary Care Provider: Piedad Presley Home Meds and New Rx's Prescriptions: New tramadol 50 mg tablet 50 mg PO Q8H PRNQty: 12 0RF Rx Instructions: Take 1 tablet by mouth up to every 8 hours if needed for more severe pain. Continued multivitamin Tablet 1 tab PO DAILY lactobacillus combination no.8 [Adult Probiotic] See Rx Instructions .ROUTE DIRECTED Rx Instructions: as directed; Naratri Aerosphere 160-9-4.8 mcg/actuation HFA aerosol inhaler 2 inh inhalation BID Qty: 10.7 12RF albuterol sulfate 2.5 mg /3 mL (0.083 %) solution for nebulization 2.5 mg inhalation QID PRN (Reason: shortness of breath or wheezing) Qty: 180 6RF Dupixent Syringe 300 mg/2 mL syringe 300 mg subcut Q2W Qty: 4 12RF Discharge Instructions Instructions: Groin Hernia Repair, Open Surgery Additional Instructions: Robinson, Hope to make a quick recovery as you transition home. Things went very smoothly. You did have a fairly sizable hernia, and hopefully this will provide some relief in the long run. We were able to get it repaired just as we discussed beforehand. Everything is talked back in, and the all has been closed with a permanent mesh material. Once you are home, you should be up and walking around a little bit each day. When you are resting, try to lay flat, or keep your pelvis slightly elevated to help reduce swelling. Using ice packs around the incision will also help with swelling. I would expect to get some bruising over the next few days. That is extremely common and nothing to worry about. This can even extend down into the scrotum. I recommend that you alternate [id number] Tylenol and ibuprofen every 6 hours for the next few days. I also provided a prescription for a medication called tramadol if you need that for more severe pain. Be careful with your lifting, and sometimes it is helpful to a little little bit of a pillow or pressure across the incision if you find yourself coughing or sneezing quite a bit. If you need anything at all, please do not hesitate to call. Otherwise I look forward to seeing you in the office on October 30 1. Resume all of your regular medications. 2. Use ice packs over the incision to help with postoperative pain and swelling. 3. Alternate [id number] Tylenol and ibuprofen every 6 hours for the first 2 days. Then use them as needed. Use a prescription for tramadol if needed for more severe pain. 4. Leave bandage in place for 24 hours, then remove. 5. Shower with warm soapy water. Pat dry. Feel free to replace clean bandages if that is most comfortable. 6. No soaking or tub baths until I see you in the office. 7. No heavy lifting until I see you in the office. 8.Call the office (or go directly to the emergency room after hours) if you notice any of the following: Develop chills (warm to touch), or if you have a thermometer and your temperature is above 101 Difficulty breathing or difficultly swallowing Persistent vomiting Any bleeding ? exceeding one tablespoon 9. Call your physician if the site where your intravenous was started becomes red, swollen, painful, and warm to touch. Stand Alone Forms: Portal Information Referrals: Mo Hopson MD [ [facility] STAFF PHYSICIAN, Surgery] - 10/30/25 8:00 am Activity:: No heavy lifting Remove Dressings/Wound Care:: 24 hours Shower/Bathe:: 24 hours Diet:: As Tolerated Discharge Orders Discharge Orders: Discharge Order (Routine); Ordered 10/16/25 Ordered By: Mo Hopson DS: Diagnosis Discharge Diagnosis (1) Left inguinal hernia: Status: Acute Asessment and Plan: Outpatient postoperative follow-up
--- NOTE | 2025-10-16 19:55 | ROE_ITS ---
Operative Note Operative Note PRE-OP DIAGNOSIS: Left inguinal hernia POST-OP DIAGNOSIS: same PROCEDURE: Open left inguinal hernia repair with mesh SURGEON: Mo Hopson INTERNATIONAL GUEST COORDINATOR: Allyssa Barron ANESTHESIA TYPE: Local By Surgeon and General LMA/ETT Refer to Anesthesia Record ESTIMATED BLOOD LOSS: 25 PATHOLOGY: none sent COMPLICATIONS: None Patient was transported to: PACU Patient's condition: stable Implants: Bard PerFix light large plug and patch Indications: Robinson is a 30-year-old male with symptomatic left inguinal hernia Procedure Description: I met with Robinson and his in the preoperative area, we reviewed the plan for surgery together. We then moved back to the operating room. He was assisted onto the OR table, great care was taken to ensure that he was padded and supported appropriately. General endotracheal anesthesia was initiated. The anesthesia team then provided a real-time ultrasound-guided left inguinal tap block. The surgical site was then prepped and draped in the usual fashion. I began by making an oblique incision over the left inguinal region. I dissected down through the skin to the deep fascia. Next, I incised the fascia along the length of the inguinal canal to the external ring. I then carefully identified the ilioinguinal nerve and divided it. Once this was complete, I bluntly dissected the shelving edge of the inguinal ligament down towards the pubic tubercle. Here, I encircled all cord structures with a Bo drain. Next, I began dissecting the specific cord structures. Great care was taken to spare the vas deferens and the blood supply to the testicle. Next, I isolated the hernia sac from the other inguinal structures. I reduced it back to its normal anatomic position. I then used a large mesh plug to obliterate the defect at the internal ring. I fixed in place with interrupted Prolene stitches. Next, I buttressed the posterior floor of the inguinal canal with a large mesh patch. I started by fixing it to the pubic tubercle. Next, I used Prolene sutures to affix it to the shelving edge of the inguinal ligament and the conjoined tendon. Laterally I tacked it to the internal oblique fascia and reconstructed an internal ring without any strain on the cord structures. Once this was complete, I irrigated the surgical field. It appeared hemostatic. I then closed the anterior portion of the fascia to reconstruct the front wall of the inguinal canal. I did this with interrupted Vicryl stitches. Once again, I irrigated the surgical field and inspected for hemostasis. Finally, I approximated the superficial fascia and the deep layers of the skin with absorbable suture. Skin was closed with running subcuticular stitches. Bandages were applied, the patient was awakened and transferred to the recovery unit. Date of Procedure: 10/17/25
[2025-10-17] VITALS (33 sets, daily range): BP systolic 58–121; BP diastolic 33–82; PULSE 36–86; RESP 11–24; TEMP 36–36.7; O2SAT 92–99; BMI 32.8
[2025-10-17] MEDS: Gabapentin 300 MG CAP 600 MG PO (11:22)
[2025-10-17] MEDS: Celecoxib 200 MG CAP PO (11:22)
[2025-10-17] MEDS: Acetaminophen 500 MG TAB 1000 MG PO (11:23)
[2025-10-17] MEDS: Lactated Ringers 1,000 ML 80 ML IV ×2 (12:00→16:15)
[2025-10-17] MEDS: ceFAZolin 2 GM/50 ML BAG IVPB (12:44)
--- NOTE | 2025-10-17 13:01 | W.ANESNERVE ---
Nerve Block Single Injection Procedure Date and Time Date Performed: 10/17/25 Procedure Start: 12:50 Location Where Procedure Performed Procedure Location: Operating Room Procedure Stop: 12:54 Reason Performed: Postoperative Analgesia Requesting Provider: Mo Hopson Timeout Performed Timeout Performed: Yes Monitoring Used ECG, Blood Pressure and SpO2 Sterility Sterility: Hand Hygiene, Surgical Cap, Surgical Mask, Sterile Gloves and Chlorhexidine Sedation Given During Procedure Sedation Given (Indicate Dose Given): No Sedation given Patient Mental Status Patient Mental Status: Performed under general anesthesia Nerve Block 1st Nerve Block: Laterality: Left Block Type: TAP Unilateral Ultrasound Image Saved?: Yes Needle / Catheter Used: 100mm SonoPlex II Local Anesthetic Bolus (Indicate Dose Given): Bupivacaine 0.375% Dose:: 10 mL Additives (Indicate Dose Given): None Ultrasound: Not Used Nerve Stimulator: Not Used Paresthesia: None Procedure Tolerated: No Complications Procedure Outcome: Successful Performed By: Jasson Watson
[2025-10-17] MEDS: Bupivacaine 0.5% Pres-Free W/EPI 30 ML VIAL (13:08)
--- NOTE | 2025-10-17 14:19 | W.ANESPOSTOP ---
Postoperative Evaluation Date, Time and Location Date Performed: 10/17/25 Time Performed: 14:19 Patient Location: PACU Vital Signs Most Recent Imported Vital Signs: Most Recent Vital Signs Temp Pulse Resp BP Pulse Ox 36.7 C 73 16 118/82 97 10/17/25 13:52 10/17/25 10:45 10/17/25 10:45 10/17/25 10:45 10/17/25 10:45 Pain Score Most Recent Pain Score: Most Recent Pain Score Pain Level 0 10/17/25 13:57 Assessment Mental Status: Awake (Alert & Oriented to Patient Baseline) Airway and Respiratory Function: Patent airway with normal (patient baseline) respiratory exam Cardiovascular Function: Hemodynamically Stable Hydration Status: Adequately Hydrated Nausea & Vomiting: No Nausea or Vomiting Pain: Pain is tolerable per patient Peripheral Nerve Block: Regional nerve block not resolved at time of post operative discharge Postoperative Comments:: brief debbie episode in PACU.
[2025-10-17] MEDS: fentaNYL 100 MCG/2 ML VIAL IVP ×2 (14:28→14:38)
[2025-10-17 16:24] LABS: Abs Immature Grans 0.05 10^3/uL (0.0-0.06); HCT 41.7 % (40.0-50.0); HGB 14.2 g/dL (13.5-17.5); Immature Grans % 0.5 %; MCH 29.3 pg (27.0-33.0); MCHC 34.1 % (32.0-36.0); MCV 86 fL (80-95); MPV 10.6 fL (8.0-11.0); Platelet Count 177 10^3/uL (130-400); RBC 4.84 10^6/uL (4.36-5.78); RDW 13.1 % (11.8-14.1); RDW-SD 40.7 fL; WBC 10.18 10^3/uL (4.4-10.8)
[2025-10-17] MEDS: Normal Saline Flush 10 ML SYR IV (16:38)
--- NOTE | 2025-10-17 17:06 | W.PC.ACHO ---
Registration Status: ADM SAMANTHA Primary Language: Preferred Language: Romanian Medical / Surgical History (Last Updated 10/17/25 @ 14:24 by Darlyn Hdez) Finger amputation, traumatic (Last Updated 10/17/25 @ 14:24 by Darlyn Hdez) History of left inguinal hernia (~10/17/25) Most Recent Vital Signs Temperature 36.1 C L 10/17/25 16:20 Pulse 53 L 10/17/25 16:20 Pulse Rhythm Regular 10/17/25 10:45 Pulse 57 L 10/17/25 14:51 Respiratory Rate 16 10/17/25 16:20 Respiratory Depth Normal 10/17/25 10:45 Blood Pressure 111/69 10/17/25 16:20 Blood Pressure Mean 74 10/17/25 14:51 Pulse Oximetry 95 10/17/25 16:20 Respiratory End-tidal CO2 34 10/17/25 14:51 Oxygen Delivery Method Room Air 10/17/25 16:20 Oxygen Flow Rate 4 10/17/25 13:52 Pain Level 6 10/17/25 15:30 Allergies doxycycline Allergy (Verified 10/17/25 11:06) unknown sulfamethoxazole (From Bactrim) Allergy (Verified 10/17/25 11:06) rash trimethoprim (From Bactrim) Allergy (Verified 10/17/25 11:06) rash Sulfa (Sulfonamide Antibiotics) Adverse Reaction (Unknown, Verified 10/17/25 11:06) unknown Active Medications Generic Name Dose Route Start Last Admin Trade Name Freq PRN Reason Stop Dose Admin Acetaminophen 1,000 mg 10/17/25 06:00 10/17/25 11:23 Acetaminophen 500 Mg Tab PO 10/17/25 23:59 1,000 mg PREOP PANTERA Administration Celecoxib 200 mg 10/17/25 06:00 10/17/25 11:22 Celecoxib 200 Mg Cap PO 10/17/25 23:59 200 mg PREOP PANTERA Administration Fentanyl 0 mcg 10/17/25 12:59 10/17/25 14:38 Fentanyl 100 Mcg/2 Ml Vial IVP 11/16/25 12:58 25 mcg DIRECTED PRN Administration Gabapentin 600 mg 10/17/25 06:00 10/17/25 11:22 Gabapentin 300 Mg Cap PO 10/17/25 23:59 600 mg PREOP PANTERA Administration Ringer's Solution 1,000 mls @ 80 mls/hr 10/17/25 06:00 10/17/25 16:15 IV 10/17/25 23:59 80 mls/hr INFUSION PANTERA Administration Cefazolin Sodium/Dextrose 2 gm in 50 mls @ 100 mls/hr 10/17/25 06:00 10/17/25 13:08 Ancef Duplex IVPB 10/17/25 23:59 Infused PREOP PANTERA Infusion Sodium Chloride 0 ml 10/17/25 06:00 10/17/25 16:38 Normal Saline Flush 10 Ml Syr IV 10/17/25 23:59 10 ml PRN PRN Administration IV IV Catheter Type [] Peripheral IV IV Catheter Type [Left Hand] Peripheral IV IV Catheter Gauge [] 20 IV Catheter Gauge [Left Hand] 20 Diagnostics 10/17/25 Range/Units 16:20 WBC 10.18 (4.4-10.8) 10^3/uL RBC 4.84 (4.36-5.78) 10^6/uL Hgb 14.2 (13.5-17.5) g/dL Hct 41.7 (40.0-50.0) % MCV 86 (80-95) fL MCH 29.3 (27.0-33.0) pg MCHC 34.1 (32.0-36.0) % RDW 13.1 (11.8-14.1) % Plt Count 177 (130-400) 10^3/uL MPV 10.6 (8.0-11.0) fL Immature Gran % 0.5 % Neutrophils % 87.6 % Lymphocytes % 10.4 % Monocytes % 1.3 % Eosinophils % 0.1 % Basophils % 0.1 % Nucleated RBC % 0.0 (0.0-0.3) % Absolute Neutrophils 8.92 H (1.2-6.7) 10^3/uL Absolute Lymphocytes 1.06 L (1.2-3.4) 10^3/uL Absolute Monocytes 0.13 (0.1-0.8) 10^3/uL Absolute Eosinophils 0.01 (0.0-0.7) 10^3/uL Absolute Basophils 0.01 (0.0-0.2) 10^3/uL [id number] Documentation Fingerstick Glucose Start: 10/17/25 16:14 Freq: Status: Active Protocol: Activity Type Activity Date Activity User E-sign Co-sign Detail Recorded Client Recorded Date Recorded By Document 10/17/25 16:04 EL DAJANUSZ(3) [id number] 10/17/25 16:14 EL DAJANUSZ(4) Intake and Output - 24 Hour Total 10/16/25 09:01 thru 10/17/25 16:20 Intake Total 855 Output Total 25 Balance 830 Weight 99.7 kg Intake: IV 805 Oral 50 Output: Estimated Blood Loss 25 Other: Emesis Description None Attestation Statement: By documenting the first initial, last name, and credentials of the reporting nurse below, both parties acknowledge that all relevant information regarding the patient handoff has been communicated, and that all questions have been addressed to ensure continuity and safety of care. Additional Patient Information/Comments: Report Received From: elective left inguinial hernia repair. pt had bradycardia prior to DC and was told he would admitted to observe overnight.BP 105/61, HR 56 FADUMO Meeks
[2025-10-17] MEDS: Lactated Ringers 1,000 ML 75 ML IV ×2 (17:36→23:23)
[2025-10-17] MEDS: Enoxaparin 40 MG/0.4 ML SYR SC (20:35)
[2025-10-17] MEDS: Normal Saline Flush 10 ML SYR IVP (20:35)
[2025-10-17] MEDS: Ketorolac 30 MG/ML VIAL IVP (20:35)
[2025-10-17] MEDS: Pt's Own Budesonide-Glycopyr-Formoterol [Breztri Aerosphere] Inhaler 2 EACH IH (20:40)
[2025-10-17 20:59] LABS: Anion Gap 9.5 mmol/L (3-11); BUN 16 mg/dL (9-23); CO2 23.5 mmol/L (20.0-31.0); Calcium 9.3 mg/dL (8.3-10.6); Chloride 107 mmol/L (98-107); Glucose 141 mg/dL (74-106); Potassium 4.4 mmol/L (3.5-5.1); Sodium 140 mmol/L (136-145)
[2025-10-18 07:46] VITALS: BP 123/72; PULSE 65; RESP 18; TEMP 36.6; O2SAT 97
--- NOTE | 2025-10-18 08:27 | PDOC.DSDIS_ITS ---
Date of service: 10/18/25 Discharge Plan Disposition Patient Disposition: Home Condition: Good Discharge Details Reason For Visit: Left Inguinal Hernia Repair Admit Date/Time: 10/17/25 15:57 Admit Provider: Mo Hopson Attending Provider: Mo Hopson Primary Care Provider: Piedad Presley Hospital Course Hospital Course: Patient is a 30-year-old male who presented for elective open left inguinal hernia repair yesterday. The procedure went well. Postoperatively he had some intermittent hypotension and vagal episodes so he was admitted overnight for observation. He states that he is feeling much better this morning. His pain has been well-controlled. He denies any lightheadedness or dizziness. His vital signs have remained stable. On exam his left inguinal dressing is in place and there is no surrounding ecchymosis and it is appropriately tender to palpation. At the time of discharge he was tolerating a regular diet, his pain was well-controlled and he was ambulating without difficulty. He will follow-up in the clinic as previously scheduled. Home Meds and New Rx's Prescriptions: New tramadol 50 mg tablet 50 mg PO Q8H PRNQty: 12 0RF Rx Instructions: Take 1 tablet by mouth up to every 8 hours if needed for more severe pain. Continued multivitamin Tablet 1 tab PO DAILY lactobacillus combination no.8 [Adult Probiotic] See Rx Instructions .ROUTE DIRECTED Rx Instructions: as directed; Breztri Aerosphere 160-9-4.8 mcg/actuation HFA aerosol inhaler 2 inh inhalation BID Qty: 10.7 12RF albuterol sulfate 2.5 mg /3 mL (0.083 %) solution for nebulization 2.5 mg inhalation QID PRN (Reason: shortness of breath or wheezing) Qty: 180 6RF Dupixent Syringe 300 mg/2 mL syringe 300 mg subcut Q2W Qty: 4 12RF Discharge Instructions Instructions: Groin Hernia Repair, Open Surgery Additional Instructions: Robinson, Hope to make a quick recovery as you transition home. Things went very smoothly. You did have a fairly sizable hernia, and hopefully this will provide some relief in the long run. We were able to get it repaired just as we discussed beforehand. Everything is talked back in, and the all has been closed with a permanent mesh material. Once you are home, you should be up and walking around a little bit each day. When you are resting, try to lay flat, or keep your pelvis slightly elevated to help reduce swelling. Using ice packs around the incision will also help with swelling. I would expect to get some bruising over the next few days. That is extremely common and nothing to worry about. This can even extend down into the scrotum. I recommend that you alternate ove [id number] Tylenol and ibuprofen every 6 hours for the next few days. I also provided a prescription for a medication called tramadol if you need that for more severe pain. Be careful with your lifting, and sometimes it is helpful to a little little bit of a pillow or pressure across the incision if you find yourself coughing or sneezing quite a bit. If you need anything at all, please do not hesitate to call. Otherwise I look forward to seeing you in the office on October 30 1. Resume all of your regular medications. 2. Use ice packs over the incision to help with postoperative pain and swelling. 3. Alternate [id number] Tylenol and ibuprofen every 6 hours for the first 2 days. Then use them as needed. Use a prescription for tramadol if needed for more severe pain. 4. Leave bandage in place for 24 hours, then remove. 5. Shower with warm soapy water. Pat dry. Feel free to replace clean bandages if that is most comfortable. 6. No soaking or tub baths until I see you in the office. 7. No heavy lifting until I see you in the office. 8.Call the office (or go directly to the emergency room after hours) if you notice any of the following: Develop chills (warm to touch), or if you have a thermometer and your temperature is above 101 Difficulty breathing or difficultly swallowing Persistent vomiting Any bleeding ? exceeding one tablespoon 9. Call your physician if the site where your intravenous was started becomes red, swollen, painful, and warm to touch. Stand Alone Forms: Anesthesia Discharge Inst., Tabatha Pyle ([facility]), Portal Information Referrals: Mo Hopson MD [ [facility] STAFF PHYSICIAN, Surgery] - 10/30/25 8:00 am Activity:: No heavy lifting Equipment/Supplies:: No Equipment Needed Diet:: As Tolerated Discharge Orders Discharge Orders: Discharge Order (Routine); Ordered 10/18/25 Ordered By: Josephine High DS: Diagnosis Discharge Diagnosis (1) Left inguinal hernia: Status: Acute
--- NOTE | 2025-10-18 08:31 | DSE_ITS ---
Date of service: 10/18/25 Time of Service: 08:31 DS: Diagnosis Discharge Diagnosis (1) Left inguinal hernia: Status: Acute Discharge Plan Disposition Patient Disposition: Home Condition: Good Discharge Details Reason For Visit: Left Inguinal Hernia Repair Admit Date/Time: 10/17/25 15:57 Admit Provider: Mo Hopson Attending Provider: Mo Hopson Primary Care Provider: Piedad Presley Hospital Course Hospital Course: Patient is a 30-year-old male who presented for elective open left inguinal hernia repair yesterday. The procedure went well. Postoperatively he had some intermittent hypotension and vagal episodes so he was admitted overnight for observation. He states that he is feeling much better this morning. His pain has been well-controlled. He denies any lightheadedness or dizziness. His vital signs have remained stable. On exam his left inguinal dressing is in place and there is no surrounding ecchymosis and it is appropriately tender to palpation. At the time of discharge he was tolerating a regular diet, his pain was well-controlled and he was ambulating without difficulty. He will follow-up in the clinic as previously scheduled. Home Meds and New Rx's Prescriptions: New tramadol 50 mg tablet 50 mg PO Q8H PRNQty: 12 0RF Rx Instructions: Take 1 tablet by mouth up to every 8 hours if needed for more severe pain. Continued multivitamin Tablet 1 tab PO DAILY lactobacillus combination no.8 [Adult Probiotic] See Rx Instructions .ROUTE DIRECTED Rx Instructions: as directed; Alexandriaztri Aerosphere 160-9-4.8 mcg/actuation HFA aerosol inhaler 2 inh inhalation BID Qty: 10.7 12RF albuterol sulfate 2.5 mg /3 mL (0.083 %) solution for nebulization 2.5 mg inhalation QID PRN (Reason: shortness of breath or wheezing) Qty: 180 6RF Dupixent Syringe 300 mg/2 mL syringe 300 mg subcut Q2W Qty: 4 12RF Discharge Instructions Instructions: Groin Hernia Repair, Open Surgery Additional Instructions: Robinson, Hope to make a quick recovery as you transition home. Things went very smoothly. You did have a fairly sizable hernia, and hopefully this will provide some relief in the long run. We were able to get it repaired just as we discussed beforehand. Everything is talked back in, and the all has been closed with a permanent mesh material. Once you are home, you should be up and walking around a little bit each day. When you are resting, try to lay flat, or keep your pelvis slightly elevated to help reduce swelling. Using ice packs around the incision will also help with swelling. I would expect to get some bruising over the next few days. That is extremely common and nothing to worry about. This can even extend down into the scrotum. I recommend that you alternate [id number] Tylenol and ibuprofen every 6 hours for the next few days. I also provided a prescription for a medication called tramadol if you need that for more severe pain. Be careful with your lifting, and sometimes it is helpful to a little little bit of a pillow or pressure across the incision if you find yourself coughing or sneezing quite a bit. If you need anything at all, please do not hesitate to call. Otherwise I look forward to seeing you in the office on October 30 1. Resume all of your regular medications. 2. Use ice packs over the incision to help with postoperative pain and swelling. 3. Alternate [id number] Tylenol and ibuprofen every 6 hours for the first 2 days. Then use them as needed. Use a prescription for tramadol if needed for more severe pain. 4. Leave bandage in place for 24 hours, then remove. 5. Shower with warm soapy water. Pat dry. Feel free to replace clean bandages if that is most comfortable. 6. No soaking or tub baths until I see you in the office. 7. No heavy lifting until I see you in the office. 8.Call the office (or go directly to the emergency room after hours) if you notice any of the following: Develop chills (warm to touch), or if you have a thermometer and your temperature is above 101 Difficulty breathing or difficultly swallowing Persistent vomiting Any bleeding ? exceeding one tablespoon 9. Call your physician if the site where your intravenous was started becomes red, swollen, painful, and warm to touch. Stand Alone Forms: Anesthesia Discharge Inst., Tabatha Pyle ([facility]), Portal Inf ormation Referrals: Mo Hopson MD [ [facility] STAFF PHYSICIAN, Surgery] - 10/30/25 8:00 am Activity:: No heavy lifting Equipment/Supplies:: No Equipment Needed Diet:: As Tolerated Discharge Orders Discharge Orders: Discharge Order (Routine); Ordered 10/18/25 Ordered By: Josephine High DS: Summary Time Spent with Patient providing and/or coordinating discharge services: Less than 30 minutes Status at Discharge Functional status at discharge: independent ambulation Overall status at discharge: patient is progressing back to baseline Mental Status: mental status grossly normal Speech and Movement: speech and movement normal Mood: congruent mood Affect: normal affect Exam Narrative Exam Narrative: General: Well appearing, no acute distress. Skin: Good turgor, no visible rashes or lesion HEENT: Normocephalic, atraumatic, no visible masses, neck supple CV: Regular rate Lungs: Bilateral equal chest rise, non-labored breathing Abdomen: Soft, non-tender, non-distended, left inguinal dressing intact and appropriately tender to palpation, no surrounding ecchymosis Extremities: Warm, well perfused Neurologic: No focal deficits Psychiatric: Alert and oriented, normal mood and affect Psych Mental Status: mental status grossly normal Speech and Movement: speech and movement normal Mood: congruent mood Affect: normal affect DS: Data Vitals/I&O Vitals and I&O: Vital Signs Temperature 36.6 C 10/18/25 07:46 Temperature Source Temporal Artery Scan 10/18/25 07:46 Pulse 65 10/18/25 07:46 Pulse Rhythm Regular 10/17/25 17:09 Pulse 57 L 10/17/25 14:51 Respiratory Rate 18 10/18/25 07:46 Respiratory Effort Normal, Non-Labored 10/17/25 17:09 Respiratory Depth Normal 10/17/25 17:09 Respiratory Pattern Normal 10/17/25 17:09 Blood Pressure 123/72 10/18/25 07:46 Blood Pressure Mean 89 10/18/25 07:46 Pulse Oximetry 97 10/18/25 07:46 Respiratory End-tidal CO2 34 10/17/25 14:51 Oxygen Delivery Method Room Air 10/18/25 07:46 Oxygen Flow Rate 0 10/18/25 07:46 Pain Level 7 10/17/25 20:35 Intake & Output 10/17/25 10/17/25 10/18/25 11:59 23:59 11:59 Intake Total 1858.083 / 1858.083 433.75 / 433.75 Output Total Balance 1833.083 / 1833.083 433.75 / 433.75 Weight 99.7 kg Intake: IV 1808.083 / 1808.083 433.75 / 433.75 Oral 50 / 50 Output: Estimated Blood Loss Other: Urine Color Yellow Urine Appearance Clear Urine Odor Normal Comment pt voids to toilet, unmeasured Emesis Description None Data Completed and Pending Pending Labs at Discharge: 10/17/25 10/17/25 16:20 20:30 WBC 10.18 RBC 4.84 Hgb 14.2 Hct 41.7 MCV 86 MCH 29.3 MCHC 34.1 RDW 13.1 Plt Count 177 MPV 10.6 Immature Gran % 0.5 Neutrophils % 87.6 Lymphocytes % 10.4 Monocytes % 1.3 Eosinophils % 0.1 Basophils % 0.1 Nucleated RBC % 0.0 Absolute Neutrophils 8.92 H Absolute Lymphocytes 1.06 L Absolute Monocytes 0.13 Absolute Eosinophils 0.01 Absolute Basophils 0.01 Sodium 140 Potassium 4.4 Chloride 107 Carbon Dioxide 23.5 Anion Gap 9.5 BUN 16 Creatinine 0.88 Est GFR (CKD-EPI 2020) 101.33 Glucose 141 H Calcium 9.3 PFSH All Active Problems (Updated 10/17/25 @ 14:24 by Darlyn Hdez) Left inguinal hernia (Acute) Scrotal pain (Acute) Community acquired pneumonia (Acute) Dyspnea (Acute) at rest Cyst of bursa (Acute) Lumbosacral radiculopathy (Acute) Benign paroxysmal positional vertigo (Acute) Obesity (Chronic) Medical History (Updated 10/17/25 @ 14:24 by Darlyn Hdez) Finger amputation, traumatic R Surgical History (Updated 10/17/25 @ 14:24 by Darlyn Hdez) History of left inguinal hernia (~10/17/25) Family History Father Environmental allergies Heart disease stents Sister Environmental allergies Migraine Mother Multiple sclerosis Social History Smoking/Tobacco Use Status: Never Smoking risk assessment performed?: Yes Alcohol Intake: current Alcohol Intake frequency: holidays/special occasions only Drug use: Daily Substance use type: marijuana Details: edible and flower Housing: house 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
--- NOTE | 2025-10-18 08:33 | DSE_ITS ---
Date of service: 10/18/25 Time of Service: 08:51 DS: Diagnosis Discharge Diagnosis (1) Left inguinal hernia: Status: Acute Discharge Plan Disposition Patient Disposition: Home Condition: Good Discharge Details Reason For Visit: Left Inguinal Hernia Repair Admit Date/Time: 10/17/25 15:57 Admit Provider: Mo Hopson Attending Provider: Mo Hopson Primary Care Provider: Piedad Presley Hospital Course Hospital Course: Patient is a 30-year-old male who presented for elective open left inguinal hernia repair yesterday. The procedure went well. Postoperatively he had some intermittent hypotension and vagal episodes so he was admitted overnight for observation. He states that he is feeling much better this morning. His pain has been well-controlled. He denies any lightheadedness or dizziness. His vital signs have remained stable. On exam his left inguinal dressing is in place and there is no surrounding ecchymosis and it is appropriately tender to palpation. At the time of discharge he was tolerating a regular diet, his pain was well-controlled and he was ambulating without difficulty. He will follow-up in the clinic as previously scheduled. Home Meds and New Rx's Prescriptions: New tramadol 50 mg tablet 50 mg PO Q8H PRNQty: 12 0RF Rx Instructions: Take 1 tablet by mouth up to every 8 hours if needed for more severe pain. Continued multivitamin Tablet 1 tab PO DAILY lactobacillus combination no.8 [Adult Probiotic] See Rx Instructions .ROUTE DIRECTED Rx Instructions: as directed; Alexandriaztri Aerosphere 160-9-4.8 mcg/actuation HFA aerosol inhaler 2 inh inhalation BID Qty: 10.7 12RF albuterol sulfate 2.5 mg /3 mL (0.083 %) solution for nebulization 2.5 mg inhalation QID PRN (Reason: shortness of breath or wheezing) Qty: 180 6RF Dupixent Syringe 300 mg/2 mL syringe 300 mg subcut Q2W Qty: 4 12RF Discharge Instructions Instructions: Groin Hernia Repair, Open Surgery Additional Instructions: Robinson, Hope to make a quick recovery as you transition home. Things went very smoothly. You did have a fairly sizable hernia, and hopefully this will provide some relief in the long run. We were able to get it repaired just as we discussed beforehand. Everything is talked back in, and the all has been closed with a permanent mesh material. Once you are home, you should be up and walking around a little bit each day. When you are resting, try to lay flat, or keep your pelvis slightly elevated to help reduce swelling. Using ice packs around the incision will also help with swelling. I would expect to get some bruising over the next few days. That is extremely common and nothing to worry about. This can even extend down into the scrotum. I recommend that you alternate [id number] Tylenol and ibuprofen every 6 hours for the next few days. I also provided a prescription for a medication called tramadol if you need that for more severe pain. Be careful with your lifting, and sometimes it is helpful to a little little bit of a pillow or pressure across the incision if you find yourself coughing or sneezing quite a bit. If you need anything at all, please do not hesitate to call. Otherwise I look forward to seeing you in the office on October 30 1. Resume all of your regular medications. 2. Use ice packs over the incision to help with postoperative pain and swelling. 3. Alternate [id number]-[id number] Tylenol and ibuprofen every 6 hours for the first 2 days. Then use them as needed. Use a prescription for tramadol if needed for more severe pain. 4. Leave bandage in place for 24 hours, then remove. 5. Shower with warm soapy water. Pat dry. Feel free to replace clean bandages if that is most comfortable. 6. No soaking or tub baths until I see you in the office. 7. No heavy lifting until I see you in the office. 8.Call the office (or go directly to the emergency room after hours) if you notice any of the following: Develop chills (warm to touch), or if you have a thermometer and your temperature is above 101 Difficulty breathing or difficultly swallowing Persistent vomiting Any bleeding ? exceeding one tablespoon 9. Call your physician if the site where your intravenous was started becomes red, swollen, painful, and warm to touch. Stand Alone Forms: Anesthesia Discharge Inst[facility] Tabatha Pyle ([facility]), Portal [facility] ormation, Nursing Discharge Form Referrals: Mo Hopson MD [ [facility] STAFF PHYSICIAN, Surgery] - 10/30/25 8:00 am Piedad Presley [Primary Care Provider, Medicine] Referral Note: Your PCP will reach out, if you do not hear from them please reach out. Activity:: No heavy lifting Equipment/Supplies:: No Equipment Needed Diet:: As Tolerated Discharge Orders Discharge Orders: Discharge Order (Routine); Ordered 10/18/25 Ordered By: Josephine High DS: Summary Time Spent with Patient providing and/or coordinating discharge services: Less than 30 minutes Status at Discharge Functional status at discharge: independent ambulation Overall status at discharge: patient is progressing back to baseline Mental Status: mental status grossly normal Speech and Movement: speech and movement normal Mood: congruent mood Affect: normal affect Exam Narrative Exam Narrative: General: Well appearing, no acute distress. Skin: Good turgor, no visible rashes or lesion HEENT: Normocephalic, atraumatic CV: Regular rate and rhythm Lungs: Bilateral equal chest rise, non-labored breathing Abdomen: Soft, non-tender, non-distended, left groin dressing intact with no surrounding ecchymosis, appropriately tender to palpation Extremities: Warm, well perfused Neurologic: No focal deficits Psychiatric: Alert and oriented, normal mood and affect Psych Mental Status: mental status grossly normal Speech and Movement: speech and movement normal Mood: congruent mood Affect: normal affect DS: Data Vitals/I&O Vitals and I&O: Vital Signs Temperature 36.6 C 10/18/25 07:46 Temperature Source Temporal Artery Scan 10/18/25 07:46 Pulse 65 10/18/25 07:46 Pulse Rhythm Regular 10/17/25 17:09 Pulse 57 L 10/17/25 14:51 Respiratory Rate 18 10/18/25 07:46 Respiratory Effort Normal, Non-Labored 10/17/25 17:09 Respiratory Depth Normal 10/17/25 17:09 Respiratory Pattern Normal 10/17/25 17:09 Blood Pressure 123/72 10/18/25 07:46 Blood Pressure Mean 89 10/18/25 07:46 Pulse Oximetry 97 10/18/25 07:46 Respiratory End-tidal CO2 34 10/17/25 14:51 Oxygen Delivery Method Room Air 10/18/25 07:46 Oxygen Flow Rate 0 10/18/25 07:46 Pain Level 7 10/17/25 20:35 Intake & Output 10/17/25 10/17/25 10/18/25 11:59 23:59 11:59 Intake Total 1858.083 / 1858.083 433.75 / 433.75 Output Total Balance 1833.083 / 1833.083 433.75 / 433.75 Weight 99.7 kg Intake: IV 1808.083 / 1808.083 433.75 / 433.75 Oral 50 / 50 Output: Estimated Blood Loss Other: Urine Color Yellow Urine Appearance Clear Urine Odor Normal Comment pt voids to toilet, unmeasured Emesis Description None Data Completed and Pending Pending Labs at Discharge: 10/17/25 10/17/25 16:20 20:30 WBC 10.18 RBC 4.84 Hgb 14.2 Hct 41.7 MCV 86 MCH 29.3 MCHC 34.1 RDW 13.1 Plt Count 177 MPV 10.6 Immature Gran % 0.5 Neutrophils % 87.6 Lymphocytes % 10.4 Monocytes % 1.3 Eosinophils % 0.1 Basophils % 0.1 Nucleated RBC % 0.0 Absolute Neutrophils 8.92 H Absolute Lymphocytes 1.06 L Absolute Monocytes 0.13 Absolute Eosinophils 0.01 Absolute Basophils 0.01 Sodium 140 Potassium 4.4 Chloride 107 Carbon Dioxide 23.5 Anion Gap 9.5 BUN 16 Creatinine 0.88 Est GFR (CKD-EPI 2020) 101.33 Glucose 141 H Calcium 9.3 PFSH All Active Problems (Updated 10/17/25 @ 14:24 by Darlyn Hdez) Left inguinal hernia (Acute) Scrotal pain (Acute) Community acquired pneumonia (Acute) Dyspnea (Acute) at rest Cyst of bursa (Acute) Lumbosacral radiculopathy (Acute) Benign paroxysmal positional vertigo (Acute) Obesity (Chronic) Medical History (Updated 10/17/25 @ 14:24 by Darlyn Hdez) Finger amputation, traumatic R Surgical History (Updated 10/17/25 @ 14:24 by Darlyn Hdez) History of left inguinal hernia (~10/17/25) Family History Father Environmental allergies Heart disease stents Sister Environmental allergies Migraine Mother Multiple sclerosis Social History Smoking/Tobacco Use Status: Never Smoking risk assessment performed?: Yes Alcohol Intake: current Alcohol Intake frequency: holidays/special occasions only Drug use: Daily Substance use type: marijuana Details: edible and flower Housing: house 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
[2025-10-18] MEDS: Pt's Own Budesonide-Glycopyr-Formoterol [Breztri Aerosphere] Inhaler 2 EACH IH (09:12)
[2025-10-18] MEDS: Ketorolac 30 MG/ML VIAL IVP (09:13)
[2025-10-18] MEDS: Acetaminophen 325 MG TAB 650 MG PO (09:15)
== END 2025-10-18 10:00 | disposition home or self-care (01) ==
LOC: MS 16:29
PROVIDERS: Admitting Provider Surgery; PCP Nurse Practitioner Family; Visit Provider Surgery
PROC: (CPT 49505; principal; 2025-10-17 12:15)
DX: K40.90 Unilateral inguinal hernia, without obstruction or gangrene, not specified as recurrent (principal); G89.18 Other acute postprocedural pain; E66.9 Obesity, unspecified; M54.17 Radiculopathy, lumbosacral region; Z79.899 Other long term (current) drug therapy; Z68.31 Body mass index [BMI] 31.0-31.9, adult
CPT/HCPCS: 49505; 36415; 64486; 80048; 94640; J1650; 85025; 94664; C1781; G0378; J0665; J0690; J1100; J1596; J1885; J2405; J2704; J3010; J3475